=== PATIENT | female | born 1980 | race Caucasian/White ===

== ENCOUNTER 2020-08-20 03:32 | Emergency (ER) | payer OTHER, SELFPAY ==
--- NOTE | 2020-08-20 04:01 | PC.NURSE ---
EMS REPORTS PT WAS FOUND BY BOYFRIEND AT HOME, AFTER NOT BEING SEEN FOR 30 MINUTES. [employer] ARRIVED ON SCENE AND ADMINISTERED NASAL NARCAN AND BEGAN CPR, NO SHOCK ADVISED. EMS ARRIVED TO FIND PT APNEIC AND INITIALLY IN A ENRIQUE PEA. PT WAS GIVEN MULTIPLE IVP EPI AND ADDITIONAL IVP NARCAN. PT WENT INTO [place], CPR CONTINUED. PT BROUGHT TO [facility] INTUBATED, POC 62 AND CO2 35 IN THE FIELD. EMS REPORTS FAMILY TOLD THEM THAT PT USES 6-9 BAGS OF HEROIN DAILY, AND HAD BEEN VOMITING BLOOD-PER FAMILY. PT ARRIVED TO [facility] IN [place] AND CPR IN PROGRESS. CO2 15 AT03:42. PT HAS IO IN RIGHT TIBIA AND #20 N RIGHT AC THAT IS NOT WORKING.
--- NOTE | 2020-08-20 04:16 | ED_ITS ---
HPI - CPR General Chief Complaint: Cardiac Arrest/CPR Stated Complaint: CARDIAC ARREST Time Seen by Provider: 08/20/20 04:15 Source: EMS Mode of arrival: EMS Limitations: other History of Present Illness HPI narrative: Patient comes to emergency room in cardiac arrest. According to EMS, the family called 911 because the patient's boyfriend found the patient unresponsive. Unknown down time. Patient is known to use 6 bags of heroin per day. Initially Police Department arrived to the patient's residence, administered 2 doses of intranasal Narcan , bag-valve mask ventilation was started. On EMS arrival, patient was intubated and given 2 additional doses of Narcan IO. EMS reports that by the time they arrived to emergency room, it had been between 40 and 45 minutes since the patient had been in cardiac arrest, a systole/PA. Of note, EMS mentioned that the family told them that for the last week, patient had multiple episodes bloody vomit. Per EMS, when patient was intubated, there was no blood visualized in the oropharynx. Related Data Allergies Allergy/AdvReac Type Severity Reaction Status Date / Time No Known Allergies Allergy Unverified 12/17/19 16:54 [No Known Allergies*] Review of Systems Review of Systems: Yes unobtainable due to endotracheal tube and Unobtainable due to mental condition PMF Past Medical History Medical History (Updated 08/20/20 @ 04:36 by Alyssa Drake MD) Heroin abuse Social History Social History Advance Directives: No Advance Directives Information Provided: No Physical Exam Vital Signs: Appearance: Unconscious Eyes: Dilated, unresponsive ENT: ETT in place Neck: Normal inspection. CVS: CPR in progress Respiratory: Being manually ventilated Abdomen: Soft Skin: Warm, pale Extremities: No lower extremity edema. Neuro: Unresponsive Course Course Course Narrative: Multiple doses of epinephrine were given. Patient remained in PA. Initially patient became bradycardic. It had been over an hour since CPR was started. Initially patient went into asystole. Time of was called at 03:50 architectural examiner being contacted 440am, I spoke to pt's emergency contact, Morales Nascimento. This gentleman is a patient's friend. He states that he has not seen the patient for over a week. He informed me that the patient's daughter Mariama who is 16-year-old, had been trying over last 2 days to get her mother to go to the hospital, as the mother was complaining of vomiting blood. This gentleman will contact the daughter and asked her to call our hospital, as he does not feel comfortable telling the patient's daughter that the patient architectural examiner accepted the case, number [id number] Nisreen De Leon Until now, I have not heard from the patient's daughter. Sign-out given to Dr. Murcia Discharge Plan Discharge Clinical Impression: Cardiac arrest Patient Disposition: Date/Time: 08/20/20 03:50
--- NOTE | 2020-08-20 05:43 | PC.NURSE ---
Addendum entered by Martina Caicedo 08/20/20 06:52: 's name is tona robles. armando was listed, and is pt's friend. Original Note: MD MCCLOUD CONTACTED ARMANDO, EMERGENCY CONTACT LISTED ON PT'S CHART. ARMANDO PLANS ON COMING TO HOSPITAL TO SEE .
--- NOTE | 2020-08-20 06:10 | PC.NURSE ---
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 PLEASE CONTACT HER FOR ANY ORDERS. PT HAD BARIATRIC SURGERY AND HERNIA REPAIR 2 YEARS AGO.
--- NOTE | 2020-08-20 08:44 | PC.NURSE ---
@0840 [employer] ARRIVE,SECURITY SHOWS THEM IN TO THE ROOM @0845 [employer] CALLS TO FIND OUT LOCATION OF PT AND IF FAMILY HAS ARRIVED YET STILL IN ROOM 4 AND FAMILY HAS NOT ARRIVED YET
--- NOTE | 2020-08-20 10:06 | PC.NURSE ---
armando called again. states that children are planning on coming to the ED. Son, Cristopher, Cristopher's isn't set up. Pt will be prepared for [facility]. No indication of home. Armando does not have information on family's plans for services.
--- NOTE | 2020-08-20 11:08 | PC.NURSE ---
Ninfa in room now with patient. Jose Gee. states he's the patient's . tel [phone] home will be [place] on [facility], 3 children present as well. security remains in room d/t ME acceptance.
== END 2020-08-20 12:55 | disposition expired ==
PROVIDERS: Emergency Provider Emergency Medicine
DX: I46.9 Cardiac arrest, cause unspecified (principal); F11.10 Opioid abuse, uncomplicated
CPT/HCPCS: 99282; 99284; J0171; J0461